=== PATIENT | female | born 1970 ===

== ENCOUNTER 2019-06-27 09:57 | Day surgery (SDC) | payer BC, OTHER ==
[2019-06-27] MEDS ORDERED: PROPOFOL 10 MG/ML VIAL IV ONE (09:58)
[2019-06-27] MEDS ORDERED: LIDOCAINE 2% MDV (20MG/ML) 20ML VIAL IV ONE (09:58)
--- NOTE | 2019-06-28 10:40 | Operative Note ---
OPERATION: Screening COLONOSCOPY, initial exam, average risk. POSTOPERATIVE DIAGNOSES: 1. Colonic diverticulosis. 2. No polyps seen. PREPARATION QUALITY: Good. ESTIMATED BLOOD LOSS: None. SPECIMENS: None. COMPLICATIONS: None apparent. PROCEDURE: After informed consent was obtained from the patient, she was placed in the left lateral decubitus position in the endoscopy suite, sedated and monitored by the department of anesthesia. Digital rectal examination was unremarkable. A well-lubricated [id number] colonoscope was inserted into the rectum and advanced to the cecum. Preparation quality was good. The cecum, cecal bulb, ileocecal valve, appendiceal orifice, ascending colon, transverse colon, descending colon, sigmoid colon, and rectum were free of inflammatory changes, mass lesions, or polyps. Forward and J-turn views of the rectum and anorectum were unremarkable. The endoscope was straightened, the rectal ampulla deflated, and the endoscope was removed. RECOMMENDATIONS: I would suggest the patient follow a high-fiber diet. I would recommend a repeat exam in 10 years or sooner should symptoms or history warrant. As always, thank you for allowing me to participate in the healthcare of your patients. [id number]
== END 2019-06-27 11:30 | disposition home or self-care (01) ==
LOC: HOP 09:57
PROVIDERS: ATTEND Internal Medicine Gastroenterology
DX: Z12.11 Encounter for screening for malignant neoplasm of colon (principal); K57.30 Diverticulosis of large intestine without perforation or abscess without bleeding
CPT/HCPCS: 00812; G0121